=== PATIENT | male | born 1990 | race African-American/Black ===

== ENCOUNTER 2018-03-05 13:29 | Emergency (ER) | payer OTHER ==
[~2018-03-05] VITALS: Ht 185.4 cm; Wt 72.7 kg
[2018-03-05] MEDS ORDERED: ETOMIDATE 2 MG/ML 10 ML VIAL IVP ONE (13:45)
[2018-03-05 14:03] VITALS: BP 152/107
[2018-03-05] MEDS ORDERED: KETOROLAC TROMETHAMINE 30 MG/ML VIAL IVP ONE (14:15)
== END 2018-03-05 15:34 | disposition home or self-care (01) ==
LOC: EMS 13:29
DX: S43.004A Unspecified dislocation of right shoulder joint, initial encounter (principal); F17.210 Nicotine dependence, cigarettes, uncomplicated; F12.90 Cannabis use, unspecified, uncomplicated; X58.XXXA Exposure to other specified factors, initial encounter; Y93.89 Activity, other specified; Y92.89 Other specified places as the place of occurrence of the external cause; Y99.8 Other external cause status
CPT/HCPCS: 23650; 73030; 96374; 99152; 99285; 99406; J1885; J3490; 29240

== ENCOUNTER 2018-04-11 20:16 | Emergency (ER) | payer OTHER ==
[~2018-04-11] VITALS: Ht 185.4 cm; Wt 73.2 kg
[2018-04-11] MEDS ORDERED: NAPR-58 PO (20:27)
[2018-04-11 21:47] VITALS: BP 138/99
== END 2018-04-11 21:49 | disposition home or self-care (01) ==
LOC: EMS 20:16
DX: Z48.01 Encounter for change or removal of surgical wound dressing (principal); Z47.1 Aftercare following joint replacement surgery; Z96.611 Presence of right artificial shoulder joint; F12.90 Cannabis use, unspecified, uncomplicated; F17.210 Nicotine dependence, cigarettes, uncomplicated

== ENCOUNTER 2021-05-05 02:04 | Emergency (ER) | payer MEDICAID, OTHER ==
[~2021-05-05] VITALS: Ht 185.4 cm; Wt 73.6 kg
[~2021-05-05 02:04] MED LIST: NAPR-1025 PO
[2021-05-05 02:16] VITALS: BP 150/104
[2021-05-05] MEDS ORDERED: KETOROLAC TROMETHAMINE 60 MG/2 ML VIAL IM ONE (02:45)
[2021-05-05] MEDS ORDERED: ACETAMINOPHEN/CODEINE 300-30 MG TABLET PO ONE (02:45)
== END 2021-05-05 04:33 | disposition home or self-care (01) ==
LOC: EMS 02:07
DX: S60.221A Contusion of right hand, initial encounter (principal); F12.90 Cannabis use, unspecified, uncomplicated; F17.210 Nicotine dependence, cigarettes, uncomplicated; X58.XXXA Exposure to other specified factors, initial encounter; Y93.89 Activity, other specified; Y92.89 Other specified places as the place of occurrence of the external cause; Y99.8 Other external cause status
CPT/HCPCS: 29125; 73130; 96372; 99283; J1885

== ENCOUNTER 2023-05-05 15:36 | Emergency (ER) | payer OTHER, MEDICAID ==
[~2023-05-05] VITALS: Ht 188 cm; Wt 79.5 kg
[2023-05-05 15:49] VITALS: TEMP 98.1
[2023-05-05 16:45] VITALS: BP 145/84; PULSE 98; RESP 19
[2023-05-05] MEDS ORDERED: ACETAMINOPHEN 500 MG TABLET PO ONE (16:45)
[2023-05-05] MEDS ORDERED: IBUPROFEN 600 MG TABLET PO ONE (16:45)
[2023-05-05] MEDS ORDERED: ACET-3385 PO (16:54)
== END 2023-05-05 18:56 | disposition home or self-care (01) ==
LOC: EMS 15:37
DX: S60.221A Contusion of right hand, initial encounter (principal); F17.210 Nicotine dependence, cigarettes, uncomplicated; F12.90 Cannabis use, unspecified, uncomplicated; V89.2XXA Person injured in unspecified motor-vehicle accident, traffic, initial encounter; Y93.89 Activity, other specified; Y92.89 Other specified places as the place of occurrence of the external cause; Y99.8 Other external cause status
CPT/HCPCS: 99284; 73110-TC; 73130-TC; Z7502; Z7610